=== PATIENT | female | born 2000 | race Two or more races ===

== ENCOUNTER → 2023-03-12 | Outpatient (CLI) | payer MEDICAID, SELFPAY ==
[2023-03-12 16:38] LABS: HEMATOCRIT 38.2 % (36.0-47.0); HEMOGLOBIN 12.6 g/dl (12.0-15.5); MEAN CORPUSCULAR HEMOGLOBIN 29.1 pg (27.0-33.0); MEAN CORPUSCULAR VOLUME 88.2 fl (80.0-96.0); PLATELET COUNT, AUTOMATED 308 10^3/uL (150-450); RED BLOOD COUNT 4.33 10^6/uL (4.00-5.40); WHITE BLOOD COUNT 9.9 10^3/uL (4.0-10.0)
[2023-03-12 17:08] LABS: HIV 1&2 SCREEN NEGATIVE (NEGATIVE)
[2023-03-12 17:16] LABS: HEPATITIS C VIRUS ABY INDEX 0.12 INDEX (<0.8)
[2023-03-12 17:47] LABS: GC DNA AMPLIFICATION NEGATIVE (NEGATIVE)
== END ==
LOC: M PLALAB 14:14
PROVIDERS: ATTEND Obstetrics & Gynecology
DX: Z34.91 Encounter for supervision of normal pregnancy, unspecified, first trimester (principal)

== ENCOUNTER → 2023-03-22 | Outpatient (CLI) | payer SELFPAY, MEDICAID | LOC: M PLALAB 11:41 | PROVIDERS: ATTEND Obstetrics & Gynecology | DX: Z34.82 Encounter for supervision of other normal pregnancy, second trimester (principal) ==

== ENCOUNTER → 2023-04-19 | Outpatient (CLI) | payer MEDICAID, OTHER | LOC: M WHC 13:36 | PROVIDERS: ATTEND Obstetrics & Gynecology | DX: O32.1XX0 Maternal care for breech presentation, not applicable or unspecified (principal); Z3A.21 21 weeks gestation of pregnancy ==

== ENCOUNTER → 2023-05-21 | Outpatient (CLI) | payer OTHER, MEDICAID ==
[2023-05-21 15:48] LABS: HEMATOCRIT 36.1 % (36.0-47.0); MEAN CORPUSCULAR HEMOGLOBIN 29.6 pg (27.0-33.0); MEAN CORPUSCULAR HGB CONC 33.2 g/dl (32.0-36.5); MEAN CORPUSCULAR VOLUME 88.9 fl (80.0-96.0); PLATELET COUNT, AUTOMATED 340 10^3/uL (150-450); RED BLOOD COUNT 4.06 10^6/uL (4.00-5.40); WHITE BLOOD COUNT 12.4 10^3/uL (4.0-10.0)
[2023-05-21 17:16] LABS: GC DNA AMPLIFICATION NEGATIVE (NEGATIVE)
== END ==
LOC: M PLALAB 12:21
PROVIDERS: ATTEND Advanced Practice Midwife
DX: Z34.02 Encounter for supervision of normal first pregnancy, second trimester (principal)

== ENCOUNTER → 2023-08-06 | Outpatient (REF) | payer MEDICAID | LOC: M PLALAB 11:09 | PROVIDERS: ATTEND Advanced Practice Midwife | DX: Z36.89 Encounter for other specified antenatal screening (principal); Z3A.00 Weeks of gestation of pregnancy not specified ==

== ENCOUNTER 2023-08-27 04:09 | Inpatient (IN) | payer OTHER, MEDICAID ==
[~2023-08-27] VITALS: Ht 160 cm; Wt 101.7 kg
[2023-08-27] VITALS (50 sets, daily range): BP systolic 85–189; BP diastolic 45–120
[2023-08-27] MEDS ORDERED: PRENTAB9 PO (04:59)
[2023-08-27] MEDS ORDERED: NIFEdipine 10 MG CAP PO ONE (05:00)
[2023-08-27] MEDS ORDERED: HOME MED LIST COMPLETE! XX SCH (05:00)
[2023-08-27] MEDS ORDERED: LABETALOL 100MG/20ML VIAL IV STA ×2 (05:07→05:51)
[2023-08-27 05:25] LABS: HEMATOCRIT 35.9 % (36.0-47.0); HEMOGLOBIN 11.6 g/dl (12.0-15.5); MEAN CORPUSCULAR HEMOGLOBIN 25.8 pg (27.0-33.0); MEAN CORPUSCULAR HGB CONC 32.3 g/dl (32.0-36.5); MEAN CORPUSCULAR VOLUME 79.8 fl (80.0-96.0); PLATELET COUNT, AUTOMATED 345 10^3/uL (150-450); WHITE BLOOD COUNT 13.3 10^3/uL (4.0-10.0)
[2023-08-27 05:35] LABS: TOTAL PROTEIN,RANDOM URINE 21.3 MG/DL (0.0-14.0)
[2023-08-27 05:42] LABS: ALBUMIN 2.8 G/DL (3.2-5.2); ALKALINE PHOSPHATASE 186 U/L (46-116); ALT/SGPT 11 U/L (7.0-40); AST/SGOT 14 U/L (<34); BILIRUBIN,TOTAL 0.4 MG/DL (0.3-1.2); BLOOD UREA NITROGEN 8 MG/DL (9-23); CALCIUM LEVEL 8.7 MG/DL (8.5-10.1); CARBON DIOXIDE LEVEL 21 MMOL/L (20-31); CHLORIDE LEVEL 109 MMOL/L (98-107); GLOMERULAR FILTRATION RATE > 60.0 (>60); GLUCOSE, FASTING 80 MG/DL (60-100); POTASSIUM SERUM 3.9 MMOL/L (3.5-5.1); SODIUM LEVEL 139 MMOL/L (136-145); TOTAL PROTEIN 5.9 G/DL (5.7-8.2)
[2023-08-27 05:55] LABS: CREATININE,RANDOM URINE 163.4 MG/DL
[2023-08-27] MEDS ORDERED: ACETAMINOPHEN 500 MG TAB PO ONE (06:25)
[2023-08-27] MEDS ORDERED: LACTATED RINGER'S 1000 ML IV STA (07:37)
[2023-08-27] MEDS ORDERED: OXYTOCIN INJ 10UNITS/ML 1ML VIAL IM PRN (07:40)
[2023-08-27] MEDS ORDERED: TRANEXAMIC ACID INJection 1,000 MG in NS 100 ML IV PRN (07:40)
[2023-08-27] MEDS ORDERED: LIDOCAINE 1% MDV 20ML VIAL INFIL PRN (07:40)
[2023-08-27] MEDS ORDERED: CARBOPROST TROMETHAMINE 250 MCG/ML AMP IM PRN (07:40)
[2023-08-27] MEDS ORDERED: OXYTOCIN DRIP 30 UNITS in IV 1 EA IV PRN (07:40)
[2023-08-27] MEDS ORDERED: OXYTOCIN DRIP 30 UNITS in IV 1 EA IV SCH (08:25)
[2023-08-27] MEDS: LR 1,000 ML IV SCH ×2 (10:17→17:35)
[2023-08-27] MEDS ORDERED: EPIDURAL/PCA KEYS XX PRN (20:40)
[2023-08-27] MEDS ORDERED: ePHEDrine SULFATE 25 MG/5 ML(5MG/ML) SYRINGE IVP PRN (20:40)
[2023-08-27] MEDS ORDERED: diphenhydrAMINE 50MG/ML VIAL IV PRN (20:40)
[2023-08-27] MEDS ORDERED: NALOXONE INJ 0.4MG/1ML VIAL IV PRN (20:40)
[2023-08-27] MEDS ORDERED: LR 500 ML IV PRN (20:40)
[2023-08-27] MEDS ORDERED: ONDANSETRON 4MG 2ML VIAL IV PRN (20:40)
[2023-08-27] MEDS: FENTANYL/ROPIVACAINE/NACL BAG 100 ML EPIDURAL SCH (21:06)
[2023-08-28 00:22] VITALS: BP 148/81
[2023-08-28] MEDS: FENTANYL/ROPIVACAINE/NACL BAG 100 ML EPIDURAL SCH (04:02)
[2023-08-28 05:30] LABS: CORD GAS ABE V -8.4; CORD GAS HCO3 V 18.2 MMOL/L; CORD GAS PH V 7.264 UNITS; CORD GAS PO2 V 38.7 mmHg; CORD GAS SBC V 17.4 MMOL/L; CORD GAS TCO2 V 19.4 MMOL/L
[2023-08-28 05:33] LABS: CORD GAS ABE A -13.4; CORD GAS HCO3 A 16.4 MMOL/L; CORD GAS O2 SAT A 62.7 %; CORD GAS PCO2 A 53.3 mmHg; CORD GAS PH A 7.106 UNITS; CORD GAS PO2 A 31.2 mmHg; CORD GAS SBC A 13.6 MMOL/L
[2023-08-28] MEDS ORDERED: ONDANSETRON 4MG 2ML VIAL IV PRN (05:45)
[2023-08-28] MEDS ORDERED: DOCUSATE SODIUM 100MG CAPSULE PO PRN (05:45)
[2023-08-28] MEDS ORDERED: LR 1,000 ML IV SCH (05:45)
[2023-08-28] MEDS ORDERED: DIBUCAINE 1% OINTMENT 30GM TOP PRN (05:45)
[2023-08-28] MEDS ORDERED: IBUPROFEN 600MG TAB PO PRN (05:45)
[2023-08-28] MEDS ORDERED: OXYTOCIN DRIP 30 UNITS in IV 1 EA IV SCH ×4 (05:45)
[2023-08-28] MEDS ORDERED: RHOGAM 300MCG (1500IU) INJ IM SCH (05:45)
[2023-08-28] MEDS ORDERED: ACETAMINOPHEN 500 MG TAB PO PRN (05:45)
[2023-08-28 08:00] VITALS: BP 132/67; O2SAT 97
[2023-08-28] MEDS ORDERED: PRENATAL VITAMINS CHEWABLE TABLET PO SCH (09:00)
[2023-08-28] MEDS: PRENATAL VITAMINS CHEWABLE TABLET PO SCH (09:45)
[2023-08-28] MEDS: IBUPROFEN 800 MG TAB PO PRN (09:46)
[2023-08-28 12:30] VITALS: BP 118/58; O2SAT 95
[2023-08-28 14:00] VITALS: BP 123/56; O2SAT 96
[2023-08-28 18:00] VITALS: BP 136/84; O2SAT 98
[2023-08-28] MEDS: ACETAMINOPHEN TAB 650MG DOSE (2X325MG) PO PRN (20:57)
[2023-08-28 22:00] VITALS: BP 121/56; O2SAT 97
[2023-08-29] MEDS: IBUPROFEN 800 MG TAB PO PRN (03:29)
[2023-08-29 06:00] VITALS: BP 123/60; O2SAT 98
[2023-08-29] MEDS: PRENATAL VITAMINS CHEWABLE TABLET PO SCH (08:26)
[2023-08-29] MEDS: ACETAMINOPHEN TAB 650MG DOSE (2X325MG) PO PRN (08:29)
[2023-08-29 18:00] VITALS: BP 134/71; O2SAT 96
[2023-08-30 06:00] VITALS: BP 128/67; O2SAT 98
[2023-08-30] MEDS: IBUPROFEN 800 MG TAB PO PRN (07:22)
[2023-08-30] MEDS: PRENATAL VITAMINS CHEWABLE TABLET PO SCH (07:22)
[2023-08-30] MEDS ORDERED: MEASLES,MUMPS,RUBELLA VACCINE INJ (MMR-II) SC.IMMUN ONE (09:00)
== END 2023-08-30 14:15 | disposition home or self-care (01) | DRG 560 ==
LOC: M LDO 04:09 → M LDI 05:14 → M OBS 08-28 07:49
PROVIDERS: ADMIT Advanced Practice Midwife; ATTEND Obstetrics & Gynecology
PROC: 10907ZC Drainage of Amniotic Fluid, Therapeutic from Products of Conception, Via Natural or Artificial Opening (ICD-10-PCS; 2023-08-27)
PROC: 10E0XZZ Delivery of Products of Conception, External Approach (ICD-10-PCS; principal; 2023-08-28)
PROC: 0HQ9XZZ Repair Perineum Skin, External Approach (ICD-10-PCS; 2023-08-28)
DX: O14.14 Severe pre-eclampsia complicating childbirth (principal); O70.0 First degree perineal laceration during delivery; Z3A.39 39 weeks gestation of pregnancy; Z37.0 Single live birth

== ENCOUNTER → 2025-03-16 | Outpatient (CLI) | payer OTHER ==
[~2025-03-16] MED LIST: PRENTAB9 PO
[2025-03-16 17:07] LABS: PLATELET COUNT, AUTOMATED 341 10^3/uL (150-450)
[2025-03-16 17:36] LABS: LDH LACTATE DEHYDROGENASE 163 U/L (120-246)
[2025-03-16 17:37] LABS: ALT/SGPT 12 U/L (7.0-40); AST/SGOT 13 U/L (<34); CREATININE FOR GFR 0.53 MG/DL (0.55-1.30); GLOMERULAR FILTRATION RATE > 90.0 (>60)
[2025-03-16 18:00] LABS: Trichomonas vaginalis (AMP) NOT DETECTED (NEGATIVE)
[2025-03-16 18:04] LABS: HIV 1&2 SCREEN NEGATIVE (NEGATIVE)
[2025-03-16 18:11] LABS: HEPATITIS C VIRUS ABY INDEX < 0.02 INDEX (<0.8)
[2025-03-16 18:23] LABS: GC DNA AMPLIFICATION NEGATIVE (NEGATIVE)
[2025-03-16 19:17] LABS: TOTAL PROTEIN,RANDOM URINE 16.6 MG/DL (0.0-14.0)
== END ==
LOC: M PLALAB 16:07
PROVIDERS: ATTEND Nurse Practitioner Family
DX: Z34.80 Encounter for supervision of other normal pregnancy, unspecified trimester (principal)

== ENCOUNTER → 2025-05-17 | Outpatient (CLI) | payer OTHER | LOC: M WHC 14:49 | PROVIDERS: ATTEND Nurse Practitioner Family | DX: Z34.80 Encounter for supervision of other normal pregnancy, unspecified trimester (principal) ==

== ENCOUNTER → 2025-07-21 | Outpatient (CLI) | payer MEDICAID, OTHER ==
[2025-07-21 15:15] LABS: PLATELET COUNT, AUTOMATED 348 10^3/uL (150-450)
[2025-07-21 15:39] LABS: GLUCOSE CHALLENGE TEST 1 HOUR 77 MG/DL (LESS THAN 140)
[2025-07-21 16:14] LABS: HIV 1&2 SCREEN NEGATIVE (NEGATIVE)
[2025-07-21 16:22] LABS: HEPATITIS C VIRUS ABY INDEX < 0.02 INDEX (<0.8)
[2025-07-21 16:26] LABS: Trichomonas vaginalis (AMP) NOT DETECTED (NEGATIVE)
[2025-07-21 16:50] LABS: GC DNA AMPLIFICATION NEGATIVE (NEGATIVE)
== END ==
LOC: M PLALAB 11:36
PROVIDERS: ATTEND Nurse Practitioner Family
DX: Z34.80 Encounter for supervision of other normal pregnancy, unspecified trimester (principal)